=== PATIENT | female | born 1975 | race Two or more races ===

== ENCOUNTER 2022-12-16 21:32 | Emergency (ER) | payer MEDICAID, OTHER ==
[~2022-12-16] VITALS: Ht 149.9 cm; Wt 81.0 kg
[2022-12-17] MEDS ORDERED: MORPHINE SULFATE 4 MG/ML SYR/VIAL IV ONE (01:15)
[2022-12-17] MEDS ORDERED: ONDANSETRON HCL 4 MG/2 ML VIAL IV ONE (01:15)
[2022-12-17 03:47] VITALS: BP 107/45
== END 2022-12-17 03:57 | disposition home or self-care (01) ==
LOC: ER 21:36
DX: R51.9 Headache, unspecified (principal); R10.31 Right lower quadrant pain; M25.552 Pain in left hip; R07.89 Other chest pain; W10.9XXA Fall (on) (from) unspecified stairs and steps, initial encounter; Y93.89 Activity, other specified; Y92.89 Other specified places as the place of occurrence of the external cause; Y99.8 Other external cause status
CPT/HCPCS: 70450; 71045; 71250; 72125; 73700; 74176; 96374; 96375; 99285; J2270; J2405